=== PATIENT | male | born 1945 | race Caucasian/White ===

== ENCOUNTER 2022-12-04 12:39 | Outpatient (CLI) | payer OTHER, SELFPAY | END 2022-12-04 12:40 | disposition home or self-care (01) | LOC: INJ CL 12:41 | PROVIDERS: PCP Family Medicine; Visit Provider Family Medicine | DX: M17.12 Unilateral primary osteoarthritis, left knee (principal); M25.562 Pain in left knee | CPT/HCPCS: 64454 ==

== ENCOUNTER 2022-12-18 11:57 | Outpatient (CLI) | payer OTHER, SELFPAY | END 2022-12-18 11:58 | disposition home or self-care (01) | LOC: INJ CL 11:57 | PROVIDERS: PCP Family Medicine; Visit Provider Family Medicine | DX: M17.12 Unilateral primary osteoarthritis, left knee (principal); M25.562 Pain in left knee; G89.29 Other chronic pain | CPT/HCPCS: 64624; J2250; J3010 ==

== ENCOUNTER 2023-11-12 14:19 | Outpatient (CLI) | payer OTHER, SELFPAY | END 2023-11-12 14:20 | disposition home or self-care (01) | LOC: INJ CL 14:23 | PROVIDERS: PCP Family Medicine; Visit Provider Family Medicine | DX: M17.12 Unilateral primary osteoarthritis, left knee (principal); M25.562 Pain in left knee | CPT/HCPCS: 64454 ==

== ENCOUNTER 2023-12-03 12:08 | Outpatient (CLI) | payer OTHER, SELFPAY | END 2023-12-03 12:09 | disposition home or self-care (01) | LOC: INJ CL 12:08 | PROVIDERS: PCP Family Medicine; Visit Provider Family Medicine | DX: M17.12 Unilateral primary osteoarthritis, left knee (principal); M25.562 Pain in left knee; G89.29 Other chronic pain | CPT/HCPCS: 64624; J2250; J3010 ==

== ENCOUNTER 2024-04-15 09:46 | Day surgery (SDC) | payer MEDICARE, SELFPAY ==
[2024-04-15] VITALS (22 sets, daily range): BP systolic 114–157; BP diastolic 62–86; PULSE 61–89; RESP 14–16; TEMP 36.1–36.9; O2SAT 94–100; BMI 31.3
--- OUTSIDE RECORDS SUMMARY | 2024-04-15 09:49 | XMS_ITS | Clinical Summary ---
Author Organization [employer] [facility] [employer] [facility] Address [place], [place] [address] Care Team Providers Care Transplant Case Manager Name Role Phone Issac Curry MD Primary Care Provider [phone] Allergies Active Allergy Reactions Criticality Noted Date Comments Tamsulosin Chest Pain 07/08/2012 Lisinopril Cough 10/25/2016 Fenofibrate Nausea Only 07/02/2007 Medications MULTIVITAMIN TAB one tab daily 30 0 07/02/19 08 Active naproxen (ALEVE) 220 mg tablet One tab daily 0 07/09/19 13 Active kqabf-[id number]-[id number]-e pa-lipids 317-88-48-50 mg cap Take by mouth once daily. 1 Cap 0 11/14/19 13 Active CONTOUR NEXT METER USE DIRECTED 0 19 Active lancets 33 gauge miscIndications:Typ e 2 diabetes mellitus without complication, with long-term current use of insulin (HC) Dispense item covered by pt ins. E11.9 IDDM type II - Test 4 times/day. Reason: High A1C 400 Each 3 07/01/19 20 Active blood sugar diagnostic (OneTouch Ultra Test) stripIndications:Ty pe 2 diabetes mellitus with microalbuminuria, with long-term current use of insulin (HC) DISPENSE TEST STRIPS COVERED BY INSURANCE. TEST 4 TIMES DAILY 400 Each 3 05/27/19 24 Active FreeStyle Thierno 3 Sensor for continuous blood glucose monitor (CGM)Indications:Ty pe 2 diabetes mellitus with left eye affected by mild nonproliferative retinopathy without macular edema, with long-term current use of insulin (HC) To be used to read blood sugars, follow tunnel heading supervisor directions. 6 Each 3 09/19/19 24 Active PrintEcoStyle Thierno 3 [place] for continuous blood glucose monitor (CGM)Indications:Ty pe 2 diabetes mellitus with left eye affected by mild nonproliferative retinopathy without macular edema, with long-term current use of insulin (HC) To be used to read blood sugars follow tunnel heading supervisor directions. 1 Each 09/19/19 24 Active pen needle (bd insulin pen needle uf mini) 31 gauge x 3/16 (disposable insulin pen needle)Indications: Diabetes mellitus without complication (HC) USE DIRECTED FOR INJECTION 5 TIMES A DAY 500 Each 3 10/17/19 24 Active insulin glargine, U-100, (Basaglar KwikPen U-100 Insulin) 100 unit/mL (3 mL) penIndications:Type 2 diabetes mellitus with microalbuminuria, with long-term current use of insulin (HC) Inject 40 units subcutaneous once daily. Product desired: BASAGLAR 36 mL 2 01/20/20 24 Active atorvastatin (LIPITOR) 40 mg tabletIndications:H ypercholesterolemia Take 1 Tablet (40 mg) by mouth once daily. For cholesterol 90 Tablet 3 01/22/20 24 Active insulin aspart, U-100, (NovoLOG Flexpen U-100 Insulin) 100 unit/mL (3 mL) penIndications:Type 2 diabetes mellitus with microalbuminuria, with long-term current use of insulin (HC) 20-40 UNITS TOTAL PER DAY BASED ON BLOOD SUGAR AND CARBS EATEN. 39 mL 2 01/22/20 24 Active losartan (COZAAR) 100 mg tabletIndications:P rimary hypertension Take 1 Tablet (100 mg) by mouth once daily. For blood pressure 90 Tablet 3 01/22/20 24 Active metFORMIN (GLUCOPHAGE XR) 500 mg Extended-Release tabletIndications:T ype 2 diabetes mellitus with microalbuminuria, with long-term current use of insulin (HC) Take 2 Tablets (1,000 mg) by mouth two times daily with meals. For diabetes. 360 Tablet 3 01/22/20 24 Active SITagliptin phosphate (JANUVIA) 50 mg tabletIndications:T ype 2 diabetes mellitus with microalbuminuria, with long-term current use of insulin (HC) Take 1 Tablet (50 mg) by mouth once daily. For diabetes. 90 Tablet 2 03/16/19 25 Active amLODIPine (NORVASC) 2.5 mg tabletIndications:P rimary hypertension Take 1 Tablet (2.5 mg) by mouth once daily. For blood pressure. 90 Tablet 2 04/03/19 25 Active amLODIPine (NORVASC) 5 mg tabletIndications:P rimary hypertension Take 1 Tablet (5 mg) by mouth once daily. For blood pressure. 30 Tablet 5 03/09/20 24 025 Disconti nued(*Me dication adjustme nt) Active Problems Problem Noted Date Diagnosed Date Chronic pain of left knee 12/04/2023 Overview (12/04/2023): Nov 2023: Dr. Hutchinson did left knee Coolief procedure. 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 Hutchinson ultrasound guided left hip joint injection. At 2+ weeks 95% Pain relief. September 2023: Dr. Hutchinson ultrasound guided left hip joint injection. AT 2 weeks was 90% pain relief January 2024: Dr. Hutchinson ultrasound guided left hip joint injection with Cortisone and Euflexa. Hypertriglyceridemia 01/24/2020 Overview (11/07/2020): Has allergy to Tricor. Jan 2020: Triglycerides 422. Trig 779, pt declined adding fenofibrate to statin. RBBB (right bundle branch block) 07/25/2018 Overview (07/25/2018): July 2018: holter also showed pvc 11%. Coronary artery disease invo lving mille lacs coronary artery of mille lacs heart without angina pectoris 11/15/2016 Overview (11/15/2016): 2010: [facility] for chest pain with negative Chest CT, Angiogram without limiting lesion, Echocardiogram also; thought to be GERD Related CP in 2010. Apr 2016: palpitations, Stress test negative for ischemia. October 2016: Admission for chest pain to [facility]. Coronary CT Angiogram showed calcium score 75%. Chest pain 10/25/2016 Skin cancer 10/11/2016 Overview (10/11/2016): 10/09/16 right upper back: Basal cell carcinoma, nodular and infiltrative types. ED & C done 10/09/16 Chest pain, non-cardiac 07/08/2014 Overview (10/26/2016): 2010: [facility] for chest pain with negative Chest CT, Angiogram without limiting lesion, Echocardiogram also; thought to be GERD Related CP in 2010. Apr 2016: palpitations, Stress test negative for ischemia. October 2016: Admission for chest pain to [facility]. CT Heart Profile done at [facility]. 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 Elevated liver enzymes 02/14/2013 Overview (02/14/2013): February 2013: ALT mildly elevated. Family hx of colon cancer 12/18/2010 Overview (11/13/2012): Father had Colon Cancer in 60's. GERD (gastroesophageal reflux disease) 1 Overview (04/05/2014): 2010: GERD, [place]. [facility] [place] [facility] and was negative for CAD May 2010. Primary hypertension 06/11/2008 Overview (03/09/2024): June 2013: started lisinopril. May 2016: changed lisinopril to losartan due to cough. Jan 2020: increased Losartan to 75mg. February 2020: increased Losartan 100mg. January 2024: Add amlodipine 2.5mg. February 2024: Increased amlodipine to 5mg. Hypercholesterolemia 04/27/2005 Overview (11/07/2020): September 2013: due to new recs, increased Atorvastatin (Lipitor) to 40 mg. October 2020: Trig 779, pt declined adding fenofibrate to statin. 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 Was on oral meds, stopped around 2006 for metformin, and 2010 for actos and januvia. [facility] and was negative for CAD May 2010. On insulin since approximately 2010. Nov 2012: lantus 50 Units times 2 at same time total 100 Units. 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 March 2014: Humalog Kwik pen not covered. Dec 2015: adding metformin to lantus and novolog. September 2019: [facility] No Diabetic Changes, but had other Eye Disease. October 2020: Continued insulin and added Farxiga. Oct 2021: stopped Farxiga due to urinary symptoms. August 2022: added januvia, continued on metformin and insulin. January 2024: Changed Januvia to Tradjenta for cost reasons only. Mar 2024: Changing back to Januvia 50mg, Tradjenta not seeming to work well. Resolved Problems Problem Noted Date Diagnosed Date Resolved Date Subdural hematoma 06/11/2008 11/03/2020 Overview (11/13/2012): 2008, fall, 2 months later with Subdural and emergency craniotomy. No know residual effects. Hypertension 02/24/2008 06/11/2008 Encounters Date Type Department Care Team Description 04/03/2024 11:10 AM ROLLING MACHINE OPERATOR Office Visit [facility] [address] [facility] [place] [address] Issac Curry MD Preoperative Exam (DOS: 04/15/2024 LEFT Hip Replacement/[facility]/Dr Jeremiah Ariza) 04/03/2024 Orders Only [facility] [address] [facility] [place] [place] [address] Issac Curry MD 1 scan: (1-Ord) NFLD-EKG-04/03/24 04/03/2024 Travel 03/16/2024 Telephone [facility] [address] [place] [address] Issac Curry MD Medication Management 03/06/2024 Telephone [facility] [address] [place] [address] Issac Curry MD Medication Management (SITagliptin phosphate (JANUVIA) 50 mg tablet) 03/06/[address] [address] Issac Curry MD call back (blood pressure reading) 03/05/[address] [address] Issac Curry MD Refill Request (JANUVIA) 02/27/[address] [address] Issac Curry MD Blood Pressure 02/05/2024 7:45 AM ROLLING MACHINE OPERATOR Procedure Only [address] [address] Corey Hutchinson MD Procedure (Left hip intra-articular betame... 02/05/2024 Travel 02/03/[address] [address] Issac Curry MD Refill Request (Januvia 50mg tablet) 01/20/2024 12:35 PM ROLLING MACHINE OPERATOR Office Visit [address] [address] Issac Curry MD Diabetes (Last Diabetic Check: 09/19/2023/Last Diabetic Eye Exam: 03/14/2021/Last Diabetic Education: 10/02/2023) 01/20/2024 Orders Only [address] [address] Issac Curry MD <No scans attached> 01/20/2024 Travel from Last 3 Months Immunizations Name Administration Dates Next Due COVID-19 VACCINE SPIKEVAX (M ODERNA 50MCG/0.5ML) 12YO+ PFS 01/29/2023 COVID-19 vaccine (KOALA.CHBio NTech 30mcg/0.3mL) 12YO+ BIVALENT PF, MDV 08/23/2022,12/25/2021 COVID-19 vaccine (Pfizer-Bio NTech 30mcg/0.3mL) 12YO+ CARLTON-SUCROSE PF, MDV 06/22/2021 COVID-19 vaccine (PfizerWhistlestopBio NTech 30mcg/0.3mL) PF, MDV 12/16/2020,05/31/2020,05/10/2020 Influenza, High-dose Inactivated 11/27/2023,12/09 Influenza, High-dose Quadriv alent Inactivated 01/14/2023 Influenza, IIV3 (Age >=3 years) 12/18/2010,02/03 Influenza, Inactivated AIIV4 (Age 65+ Years) Preserv Free 01/16/2022,02/06/2021,01/21/2020 Influenza, Inactivated IIV3 (Age 65+ Years) Preserv Free 11/24/2018,11/15/2016 Pneumococcal Poly,23-Valent (Pneumovax) 04/03/19 17,08/04/2009 Pneumococcal conj 13-Valent (Prevnar 13) 015 RSV, Recombinant ADJ Reconst ituted (Arexvy 120MCG/0.5mL) 02/03/2024 Tdap 08/04/2009 Zoster (Shingrix-RZV, recombinant) 03/08/2021, Zoster (Zostavax-ZVL, live) 02/25/2007 Family History Medical History Relation Name Comments Cancer-colon Father D 83 also had s harrington in brain Diabetes Mother D 83 old age Good Health Sister 1 born 1944 retinal detachm ent Aplastic anemia Sister 2 born 1939 Good Health Sister 2 born 1939 Relation Name Status Comments Father Mother Paternal Grandfather Sister 1 born 194 Sister 2 born 1939 Social History Tobacco Use Types Packs/Day Years Used Date Smoking Tobacco: Former Cigarettes 1 5.8 1 975 - 12/19/1979 Smokeless Tobacco: Never Tobacco Cessation:Counseling Given: Yes Comments:Hasn't smoked for a long time. Alcohol Use Standard Drinks/Week Comments Yes 0 (1 standard drink = 0.6 oz pur e alcohol) one drink weekly PHQ-2 Answer Date Recorded PHQ-2 TOTAL SCORE 0 09/19/2023 Exercise Vital Sign Answer Date Recorde d On average, how many days pe r week do you engage in moderate to strenuous exercise (like a brisk walk)? 5 days 02/29/2020 On average, how many minutes do you engage in exercise at this level? 30 min 02/29/2020 Social Connections Answer Date Recorded Do you often feel lonely or isolated from those around you? 0 01/20/2024 Financial Resource Strain Answer Date R ecorded Difficulty of Paying Living Expenses 3 01/20/2024 Difficulty of Paying Living Expenses Not on file 01/20/2024 Food Insecurity Answer Date Recorded Do you worry your food will run out before you are able to buy more? 1 01/20/2024 Transportation Needs Answer Date Record ed Does lack of transportation keep you from medica l appointments? 1 01/20/2024 Does lack of transportation keep you from work, meetings or getting things that you need? 1 01/20/2024 Housing Stability Answer Date Recorded What is your housing situation today? 1 01/20/2024 Utilities Answer Date Recorded Do you have trouble paying f or utilities (for example, heat, electricity, water, phone)? 1 01/20/2024 Sex and Gender Information Value Date Recorded Sex Assigned at Not on file Legal Sex Male 5:39 AM ROLLING MACHINE OPERATOR Gender Identity Not on file Sexual Orientation Not on file Occupation Industry Job Start Date Job End Date reitred - pharmacy student Not on file Not on file Not on file Obstetrics History Last Filed Vital Signs Vital Sign Reading Time Taken Comments Blood Pressure 135/73 04/03/2024 11:22 AM ROLLING MACHINE OPERATOR re check BP Pulse 64 04/03/2024 11:12 AM ROLLING MACHINE OPERATOR Temperature 36.7 C (98 F) 02/05/2024 7:43 AM ROLLING MACHINE OPERATOR Respiratory Rate 16 12/14/2022 9:50 AM CDT Oxygen Saturation 97% 04/03/2024 11:12 AM ROLLING MACHINE OPERATOR Inhaled Oxygen Concentration - - Weight 93.4 kg (206 lb) 04/03/2024 11:12 AM ROLLING MACHINE OPERATOR Height 172.7 cm (5' 8) 04/03/2024 11:12 AM ROLLING MACHINE OPERATOR Body Mass Index 31.32 04/03/2024 11:12 AM ROLLING MACHINE OPERATOR Plan of Treatment Upcoming Encounters Date Type Department Care Team (Late st Contact Info) Description 05/18/2024 1:00 PM CDT Office Visit [facility] [address] [place] [address] Issac Curry MD [address] [place] [address] Health Maintenance Due Date Last Done Comments Tetanus booster 08/05/2019 08/04/2009, 07/10 (Postponed) Medicare Wellness for age 65+ 2023 01/16/2022, 01/21/2020 Depression screening for age 12+ 09/18/2024 09/19/2023, 01/16/2022, 05/22/2021, Additional history exists BMI (ht and wt on same day) for age 18+ 04/03/2025 04/03/2024, 05/30/2023, 01/29/2023, Additional history exists Tdap Completed 08/04/2009 Pneumococcal series for age 50+ Completed 04/03/2016, 02/01/2015, 08/04/2009 Hepatitis C screening for ag e 18-79 Completed 03/27/2019 Zoster (shingles) series for age 50+ Completed 03/08/2021, 11/04/2020, 02/25/2007 COVID-19 vaccine series Completed 11/27/19 24, 01/29/2023, 08/23/2022, Additional history exists Influenza for age 65+ Completed 11/27/2023 , 01/14/2023, 01/16/2022, Additional history exists RSV vaccine for adults or Completed 02/03/2024 Medical Devices Implanted Type Area Ash Handler Device Identifier Shelf Expiration Date Model / Serial / Lot Plate Sm Square [id number] - [id number] Implanted:Qty: 2 on 06/11/2008 at [facility] Neuro Implants Left: Cranium [employer]FAM[employer] DANEK [id number] / / Straight Plate Implanted:Qty: 1 on 06/11/2008 at [facility] Left: Cranium [id number] / / Description:STRAIGHT PLATE 1.6mmx4.0mm Cruciate Self Drilling Implanted:Qty: 10 on 06/11/2008 at [facility] Explanted:at [facility] (Quantity not on file) Left: Cranium [id number] / / Description:1.6MMX4.0MM CRUC IATE SELF DRILLING Procedures Procedure Name Priority Date/Time Associated Diagnosis Comments EKG 12 LEAD Routine 04/03/2024 4:39 PM ROLLING MACHINE OPERATOR Preoperative examination Coronary artery disease involving mille lacs coronary artery of mil[place] heart without angina pectoris [place] READING EKG - NO CHARGE, COMP ONLY Routine 04/03/2024 4:38 PM ROLLING MACHINE OPERATOR Preoperative examination Coronary artery disease involving mil[place] coronary artery of [place] heart without angina pectoris HEMOGLOBIN Routine 04/03/2024 12:21 PM ROLLING MACHINE OPERATOR Preoperative examination BASIC METABOLIC PANEL Routine 04/03/2024 12:21 PM ROLLING MACHINE OPERATOR 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, with long-term current use of insulin (HC) Primary hypertension BEDSIDE US STUDY ARCHIVE Routine 02/05/2024 9:38 AM ROLLING MACHINE OPERATOR Primary osteoarthritis of left hip HEMOGLOBIN A1C MONITORING (POCT) Routine 01/20/2024 12:19 PM ROLLING MACHINE OPERATOR Type 2 diabetes mellitus with microalbuminuria, with long-term current use of insulin (HC) ANTI HCV Routine 03/27/2019 10:50 AM ROLLING MACHINE OPERATOR Need for hepatitis C screening test from Last 3 Months or Most Recently Relevant to Health Maintenance Results * EKG 12 LEAD (04/03/2024 4:39 PM ROLLING MACHINE OPERATOR) Issac Curry MD EKG ORD Final Res ult * [place] READING EKG - NO CHARGE, COMP ONLY (04/03/2024 4:38 PM ROLLING MACHINE OPERATOR) Issac Curry MD PB - PROVIDER READINGS Fi nal Result * HEMOGLOBIN (04/03/2024 12:21 PM ROLLING MACHINE OPERATOR) HEMOGLOBIN 14.0 13.2 - 17.1 g/dL [facility] Blood BLOOD SPECIMEN / Unknown 04/03/2024 12:21 PM ROLLING MACHINE OPERATOR 04/03/2024 12:21 PM ROLLING MACHINE OPERATOR Issac Curry MD HEMATOLOGY Final Res ult [facility] [address] [place] [address], [facility] [address] [place] [address] * (ABNORMAL) BASIC METABOLIC PANEL (04/03/2024 12:21 PM ROLLING MACHINE OPERATOR) Pathologist [facility] GLUCOSE 138(H) 65 - 99 mg/dL [facility] Comment: Fasting reference interval For someone without known diabetes, a glucose value >125 mg/dL indicates that they may have diabetes and this should be confirmed with a follow-up test. UREA NITROGEN (BUN) 21 7 - 25 mg/dL [facility] CREATININE 0.88 0.70 - 1.28 mg/dL [facility] EGFR 88 > OR = 60 mL/min/1. 73m2 [facility] BUN/CREATININE RATIO SEE NOTE: 6 - 22 (calc) [facility] Comment: Not Reported: BUN and Creatinine are within reference range. SODIUM 136 135 - 146 mmol/L [facility] POTASSIUM 4.9 3.5 - 5.3 mmol/L [facility] CHLORIDE 102 98 - 110 mmol/L [facility] CARBON DIOXIDE 26 20 - 32 mmol/L [facility] ELECTROLYTE BALANCE 8 7 - 17 mmol/L (calc) [facility] CALCIUM 9.8 8.6 - 10.3 mg/dL [facility] Blood BLOOD SPECIMEN / Unknown 04/03/2024 12:21 PM ROLLING MACHINE OPERATOR 04/03/2024 12:21 PM ROLLING MACHINE OPERATOR us Issac Curry MD CHEMISTRY Final Res ult Performing Organization Address [facility] Co de Phone Number [facility] [address] [place] [address], [place] [phone] [facility] [address] [place] [address] * BEDSIDE US STUDY ARCHIVE (02/05/2024 9:38 AM ROLLING MACHINE OPERATOR) Narrative Nicole Davies - 02/05/2024 9:38 AM ROLLING MACHINE OPERATOR The patient was seen for ultrasound guided injection by Dr. Corey Hutchinson. Ultrasound was not used for diagnostic purposes, but to guide the needle placement and document the position of the injection. See patient's EPIC encounter for the detail of the procedure; see [facility] for saved images of the injection. Corey Hutchinson MD PROCEDURE ORD Final Resu lt * (ABNORMAL) HEMOGLOBIN A1C MONITORING (POCT) (01/20/2024 12:19 PM ROLLING MACHINE OPERATOR) Pathologist [facility] POC HEMOGLOBIN A1C 6.9(H) <6.0 % OF TOTAL HGB [facility] Comment: Any point of care results exhibiting inconsistency with the patient's clinical status should be repeated using a different testing method. Blood BLOOD SPECIMEN / Unknown 01/20/2024 12:19 PM ROLLING MACHINE OPERATOR 01/20/2024 12:19 PM ROLLING MACHINE OPERATOR Issac Curry MD CHEMISTRY Final Res ult Performing Organization Address City/[facility]/ZIP Co de Phone Number [facility] [address] [place] [address], [place] [phone] [facility] [address] [place] [address] * ANTI HCV (03/27/2019 10:50 AM ROLLING MACHINE OPERATOR) Pathologist [facility] HEPATITIS C ANTIBODY Non-React bryce Non-React bryce 03/27/2019 4:33 PM ROLLING MACHINE OPERATOR [facility] Comment:Antibodies to HCV no t detected; does not exclude the possibility of exposure to HCV. Blood BLOOD SPECIMEN / Unknown Venipuncture / Unknown 03/27/2019 10:50 AM ROLLING MACHINE OPERATOR 03/27/2019 10:50 AM ROLLING MACHINE OPERATOR us Issac Curry MD SEND OUTS Final Res ult [facility] [address] [place] [address], [place] from Last 3 Months or Most Recently Relevant to Health Maintenance Insurance #[id number] [place] [address] MEDICARE PART A HB ONLY [facility] AETNA #[id number] [place] [address] [employer]UE [employer] BLUE MR PB ONLY [facility] AETNA MR Advance Directives * Full Code (Latest Code Status on File) Date Activated Date Inactivated Comments 07/11/2021 9:32 AM 07/11/2021 4:15 PM Question Answer Comments Code Status Discussion: Unable to Assess Preferences, Provider to review later * Full Code Date Activated Date Inactivated Comments 10/26/2016 12:06 AM 10/26/2016 3:42 PM Question Answer Comments Code Status Discussion: Not Discussed * Full Code Date Activated Date Inactivated Comments 06/11/2008 10:54 PM 06/15/2008 1:16 PM * Full Code Date Activated Date Inactivated Comments 06/11/2008 5:28 PM 06/11/2008 10:54 PM Care Teams Transplant Case Manager Relationship Specialty Start Date End Date Issac [place] [address] PCP - General Family Practice 09/19/23
[2024-04-15] MEDS: SODIUM CHLORIDE 0.9 % (FLUSH) 10 ML SYRINGE IVF (11:20)
[2024-04-15] MEDS: OXYCODONE (CR) 10 MG TAB.ER.12H PO (11:25)
[2024-04-15] MEDS: ACETAMINOPHEN 500 MG TABLET 1000 MG PO ×3 (11:26→23:32)
--- NOTE | 2024-04-15 11:45 | CRLHL7_ITS ---
For Patients: As a result of the Cures Act, medical imaging exams and procedure reports are released immediately into your electronic medical record. You may view this report before your referring provider. If you have questions, please contact your health care provider. Indication: Hip replacement surgery Technique: AP hip fluoroscopic image. Fluoroscopy time 36.5 seconds. Findings/Impression: Hardware from a left total hip arthroplasty is in satisfactory position. Dictated by Jeffrey Vega MD @ 04/15/2024 3:32:30 PM (Electronically Signed)
--- NOTE | 2024-04-15 12:10 | W.PM.H&PU ---
History & Physical Update History & Physical Update H&P Reviewed and patient assessed: No changes noted
[2024-04-15] MEDS: 0.9 % SODIUM CHLORIDE 500 ML 500 ML 100 ML IV (12:30)
[2024-04-15] MEDS: fentaNYL 100 MCG/2 ML inj IVP (12:31)
[2024-04-15] MEDS: MIDAZOLAM HCL 1 MG/ML inj IVP (12:31)
--- NOTE | 2024-04-15 12:34 | SUR.PREOP ---
TIME?OUT:?1230 PT/RN/MDA?VERIFICATION?OF?SURGICAL?SITE,?PROCEDURE,?AND?CONSENT OBTAINED?PRIOR?TO?INVASIVE?PROCEDURE.all in agreement
--- NOTE | 2024-04-15 12:42 | SUR.PREOP ---
pt checked his BG via his phone monitor. 95. MDA aware. No action needed.
[2024-04-15] MEDS: LACTATED RINGERS 1000 ML 1,000 ML 100 ML IV (13:04)
[2024-04-15] MEDS: CEFAZOLIN 2 GM in 0.9 % SODIUM CHLORIDE Mini-bag 100 ML IVPB ×2 (13:28→19:28)
[2024-04-15] MEDS: TRANEXAMIC ACID 100 MG/ML INJ 1000 MG IV (13:40)
--- NOTE | 2024-04-15 13:44 | P.NB_ITS ---
Nerve Block Nerve Block Time Seen by Provider: 12:35 Date Seen: 04/15/24 Type of block requested by surgeon for post-operative analgesia: GERI/LFCN Side: left Time out performed: Yes Verification of patient name: Yes Verification of date of : Yes Site marking: site marked Name of person performing procedure: Vazquez Continuous monitoring Was continuous monitoring of O2 sat, B/P, nuclear monitoring technician, recorded every 15 minutes?: Yes Procedure Checklist: sterile prep, needles and gloves Ultrasound guided. Images saved: Yes Medications given in 5ml increments after negative aspiration: Ropivicaine %: 0.5 mL: 30 Needle gauge: 20 Precedex (mcg): 25 Patient tolerated procedure well: Yes Additional comments: Needle noted below psoas tendon needle noted adjacent to LFCN Block Charges Block Charge (with Pro Fee): Other Periph Nerve Block Use of Ultrasound Machine for Block: Yes- US Guidance/pain block
--- NOTE | 2024-04-15 13:44 | P.ANES_ITS ---
Anesthesia Charges Start Date/Time Anesthesia Start Date: 04/15/24 Anesthesia Start Time: 13:14 Stop Date/Time Anesthesia Stop Date: 04/15/24 Anesthesia Stop Time: 15:40 Summary Extremes of Age - Over 70 or under 1: MDA Coding CPT Codes CPT Codes: ANESTH HIP ARTHROPLASTY - 53362 ([id number]) P3 - PATIENT W/SEVERE SYS DISEASE, QK - PSYCHOLOGIST SOCIAL 2-4 CNCRNT ANES PROC, QX - CUSTOMER CARE TEAM COACH SVC W/ MD MED DIRECTION Additional Codes: Summary - Extremes of Age - Over 70 or under 1: MDA ([id number])
--- NOTE | 2024-04-15 13:44 | W.ANESCHARGE ---
Anesthesia Charges Start Date/Time Anesthesia Start Date: 04/15/24 Anesthesia Start Time: 13:14 Stop Date/Time Anesthesia Stop Date: 04/15/24 Anesthesia Stop Time: 15:40 Summary Extremes of Age - Over 70 or under 1: MDA Coding CPT Codes CPT Codes: ANESTH HIP ARTHROPLASTY - 17511 ([id number]) P3 - PATIENT W/SEVERE SYS DISEASE, QK - HAZMAT TRUCK DRIVER 2-4 CNCRNT ANES PROC, QX - ECONOMICS ANALYST SVC W/ MD MED DIRECTION Additional Codes: Summary - Extremes of Age - Over 70 or under 1: MDA ([id number])
--- NOTE | 2024-04-15 14:57 | PM.ORPRC ---
Procedure Note Date of procedure: 04/15/24 Procedure: PREOPERATIVE DIAGNOSIS: 1. Left hip osteoarthritis, severe, primary POSTOPERATIVE DIAGNOSIS: 1. Left hip osteoarthritis, severe, primary PROCEDURE: 1. Left total hip arthroplasty-anterior approach 2. 13607 - intraoperative fluoroscopy up to 1 hour. SURGEON: Jeremiah Ariza MD. PNEUMATIC HOIST OPERATOR: Garland Blanco PA-C; May Zendejas PA-C - Of note, a skilled assistant hvac mechanic was critical for this case to aid in patient positioning, tissue retraction, limb manipulation/positioning, dislocation/relocation, patient safety, and closure. ANESTHESIA: General endotracheal anesthetic EBL: 300 mL IMPLANTS: DePuy J&J uncemented total hip [place] cup size 54, hole eliminator, +4 neutral liner Actis stem, high offset, size 6 +1.5 mm ceramic 36 mm head. COMPLICATIONS: None evident INDICATIONS: The patient is a pleasant 79-year-old male who has experienced severe left hip pain and difficulty bearing weight. Workup included x-rays which revealed severe osteoarthrosis in the hip. Given the deformity, the dysfunction, and the pain, as well as the failure of nonoperative management, recommendation was made for surgery. FINDINGS: Full-thickness chondral loss diffusely throughout the femoral head and acetabulum. Deformed/flattened femoral head. Abundant synovitis diffusely throughout the hip joint. DESCRIPTION OF PROCEDURE: Following a thorough discussion of risks, benefits, and alternatives consent was obtained and the left hip was marked. The patient was brought to the operating room and placed supine on the operating table. Induction of anesthesia was undertaken. 2 g IV Ancef and 1 g tranexamic acid was administered within 1 hr of incision preoperatively. Proper time-out was performed identifying proper patient, site, procedure. The operative extremity was prepped and draped in the appropriate sterile fashion using ChloraPrep after the patient was positioned on the Mcgraw table with head in neutral alignment and all bony prominences well padded. C-arm fluoroscopic imaging was utilized to confirm proper pelvis rotation and position, and to get true AP films of both the contralateral left, and the affected left hip. This is for comparison. A longitudinal incision was made starting approximately 1 cm distal to the ASIS, and 3-4 cm lateral. The incision was extended distally aiming toward the lateral border the patella. Sharp incision through skin and bovie cautery through the subcutaneous tissue allowed identification of the TFL fascia. This was sharply divided, and the fascia bluntly released from the muscle fibers as we dissected medial. Upon coming to the medial border, we were able to retract the TFL laterally, and penetrated the deeper fascia and identify the crossing circumflex vessels. These were ligated/cauterized. The rectus was elevated from the capsule, and retractors placed laterally and medially along the femoral neck to help with visualization of the capsule. We then performed an inverted T capsulotomy. The capsule was tagged for later repair. Retractors were placed inside the capsule. The femoral neck was visualized after releasing medially down to the lesser trochanter, along the saddle laterally, and up onto the acetabulum. The femoral neck cut was made in line with our preoperative templating. The head was removed in a single piece, and sized. We turned our attention to acetabular preparation. Initially, the labrum was resected from around the perimeter, the pulvinar was excised, allowing us to visualize the false wall. We started the reaming with a 43 mm reamer. This was medialized down to the true wall. We then enlarged our reamers sequentially up to one size less than the selected cup size. We trialed at the same size and found it to have an excellent fit. The selected cup was then opened, inserted, and impacted in line with the goal of 40-45? of abduction, and 20-25? of anteversion. This was confirmed on C-arm fluoroscopic imaging to be in the appropriate/goal position. Once the cup was placed we placed a hole eliminator and a liner consistent with preop planning. Attention was turned to the femoral preparation. The limb was extended, externally rotated, and adducted. The posteromedial capsule was released, as retractors were placed allowing excellent access to the proximal femur. Initially a card boxer was followed by canal finder followed by various broaches. We broached sequentially up to size noted above, found it to have excellent rotational control, and trialing various heads and necks, revealed that appropriate neck offset, and the above noted head size provided the greatest stability, and presybeterian of length, and offset. C-arm fluoroscopic imaging confirmed position of the stem, as well as leg lengths, which were compared with the pre procedure all fluoroscopic images. Trial implants were removed, the real femoral stem inserted, as was the ceramic head. After reducing, the leg was placed through range of motion and stability was confirmed anterior, posterior, and lateral. A 3 min Betadine soak was then performed, and thorough irrigation with normal saline followed. Closure of the capsule was performed with #1 PDS. Bleeding was confirmed to be controlled at this stage, and the TFL fascia was closed with #0 strata fix. Subcutaneous, and subcuticular closure was performed with 2-0 Vicryl and 4-0 Monocryl, respectively. Dressings were applied, and the patient was awoken from anesthesia and transferred the PACU in stable condition. A skilled assistant hvac mechanic was critical for this case to aid in patient positioning, tissue retraction, proximal femur exposure, limb manipulation/positioning, dislocation/relocation, patient safety, and closure. PLAN: 1. Weight bear as tolerated operative extremity. 2. 23 hr perioperative antibiotics. 3. Ice. 4. PT/OT consults for ambulation assistance/mobility education. 5. Social work consult for discharge planning. 6. DVT prophylaxis with at SCDs and Xarelto x5 days followed by aspirin for a total of 1 month..
--- NOTE | 2024-04-15 16:45 | P.IMCN_ITS ---
Date of Consult Patient: [place] Patient Consult date: 04/15/24 Requesting Physician: Orthopedics Primary Care Provider: Issac Curry MD Consult Narrative Reason for consult: Medical management Narrative: Brett Quezada is a 79 year old male past medical history significant for type 2 diabetes mellitus, insulin dependent, hypertension, hyperlipidemia, CAD, GERD, history of subdural hematoma, RBBB is POD#0 s/p left total hip arthroplasty, Dr. Ariza. There have been no perioperative complications or nursing concerns reported. Estimated total blood loss documented as 300 ml. Updated and reviewed the active medical problems, past medical history, past surgical history, social history, allergies and medications in our electronic EMR. Postoperatively, patient is seen with and daughter at bedside. Reports doing well. Pain well managed at this time. Reports his leg is just waking up. Denies headache or dizziness. Denies chest pain or shortness of breath. Tolerating orals without nausea vomiting. Review of Systems Narrative: REVIEW OF SYSTEMS: Complete review of systems performed and negative unless otherwise stated in HPI or below. PFSH PFSH Medical History GERD (gastroesophageal reflux disease) ?K21.9 - Gastro-esophageal reflux disease without esophagitis (ICD-10) Hypercholesteremia ?E78.00 - Pure hypercholesterolemia, unspecified (ICD-10) Right bundle branch block ?I45.10 - Unspecified right bundle-branch block (ICD-10) Coronary artery disease ?I25.10 - Atherosclerotic heart disease of [place] coronary artery without angina pectoris (ICD-10) Hypertension ?I10 - Essential (primary) hypertension (ICD-10) Diabetes ?E11.9 - Type 2 diabetes mellitus without complications (ICD-10) Surgical History Hx of craniotomy ?Z98.890 - Other specified postprocedural states (ICD-10) Hernia ?K46.9 - Unspecified abdominal hernia without obstruction or gangrene (ICD- 10) Family History Mother Diabetes Uncle Diabetes Father Colon cancer Social History What is your current living situation?: I presently have a place to live Problems where you live: no known problems In the past 12 months, utilities in danger of being shut off: no In past 12 months, lack of transportation kept you from medical appts, meetings, work, or getting things needed for daily living: no In the past 12 mos, have been you worried that your food would run out before you had money to buy more?: never true In the past 12 mos, the food you bought just didn't last and you didn't have money to buy more?: never true Smoking Status: Never smoker How often do you have a drink containing alcohol: monthly or less How many standard drinks containing alcohol do you have on a typical day: 1 or 2 AUDIT-C Alcohol total score: 1 Non-prescribed substance use: denies use Caffeine: Yes How often does anyone, including family, friends and others, physically hurt you : never How often does anyone, including family, friends and others, insult or talk down to you: never How often does anyone, including family, friends and others, threaten you with h arm: never How often does anyone, including family, friends and others, scream or curse at you: never Meds Home Medications and Allergies Home Medications ?Medication ?Instructions ?Recorded ?Confirmed ?Type atorvastatin 40 mg tablet 40 mg PO DAILY 10/04/22 04/15/24 History insulin aspart U-100 100 unit/mL 20 - 40 unit subcut TIDWM 10/04/22 04/15/24 History (3 mL) subcutaneous pen (Novolog FlexPen U-100 Insulin aspart) insulin glargine 100 unit/mL (3 30 - 60 unit subcut BID 10/04/22 04/15/24 History mL) subcutaneous pen (Basaglar KwikPen U-100 Insulin) losartan 100 mg tablet 100 mg PO DAILY 10/04/22 04/15/24 History metformin 500 mg tablet,extended 1,000 mg PO BIDWM 10/04/22 04/15/24 History release 24 hr sitagliptin phosphate 50 mg tablet 50 mg PO DAILY 10/04/22 04/15/24 History (Januvia) krill 1 cap PO DAILY 04/14/24 04/15/24 History utj-hc-[id number]-jdm-izedkyhzewzwn 300 mg-90 mg-24 mg-50 mg capsule (krill oil) multivitamin 1 tab PO DAILY 04/14/24 04/15/24 History amlodipine 2.5 mg tablet 2.5 mg PO DAILY blood pressure 04/15/24 04/15/24 History Allergies Allergy/AdvReac Type Severity Reaction Status Date / Time alendronate sodium (From Allergy Chest Pain Verified 04/14/24 06:16 Fosamax) fenofibrate (From Tricor) Allergy Nausea Verified 04/14/24 06:16 lisinopril Allergy Cough Verified 04/14/24 06:16 Exam Narrative: Exam Narrative: PHYSICAL EXAM General: Pleasant, conversant, NAD HEENT: Normocephalic, atraumatic, sclera white, EOMI, oral mucosa moist Cardiovascular: RRR, S1S2. No pitting edema Pulmonary: CTA bilaterally without rhonchi, rales, expiratory wheezes. No dyspnea Neurological: Alert, answering questions appropriately, cranial nerves intact, no focal findings Extremities: No gross joint deformity or swelling. Postoperative dressing in place, dry. Neurovascularly intact Skin: Warm, dry. Const: Vital Signs, click to edit/add: Vital Signs - 24 hr 04/15/24 10:56 04/15/24 12:31 04/15/24 12:35 Temperature 98.5 F Pulse Rate 66 63 61 Respiratory Rate 16 14 14 Blood Pressure 155/83 H 139/69 117/76 Pulse Oximetry 96 96 95 Oxygen Delivery Me thod Room Air Nasal Cannula Nasal Cannula Oxygen Flow Rate 2 2 04/15/24 15:40 04/15/24 15:45 04/15/24 15:50 Temperature 98.3 F Pulse Rate 70 68 67 Respiratory Rate 14 14 14 Blood Pressure 114/69 114/64 116/70 Pulse Oximetry 95 94 94 Oxygen Delivery Me thod Room Air Room Air Room Air Oxygen Flow Rate 04/15/24 15:55 04/15/24 16:00 04/15/24 16:05 Temperature Pulse Rate 64 65 63 Respiratory Rate 14 14 14 Blood Pressure 120/66 123/66 120/65 Pulse Oximetry 97 100 95 Oxygen Delivery Me thod Room Air Room Air Room Air Oxygen Flow Rate 04/15/24 16:10 Temperature 97.6 F Pulse Rate 67 Respiratory Rate 14 Blood Pressure 116/70 Pulse Oximetry 100 Oxygen Delivery Me thod Room Air Oxygen Flow Rate Assessment and Plan Assessment and plan (1) Osteoarthritis of left hip: Problem comment: -POD#0 s/p L KAYLIN, Dr. Ariza -perioperative management including pain management and anticoagulation per Orthopedic surgery -encourage postoperative pulmonary hygiene -PT OT consults -plan to discharge home with tomorrow Status: Acute (2) Hypertension: Problem comment: -losartan, amlodipine, resume tomorrow Status: Acute (3) Diabetes: Problem comment: -most recent A1c 6.9 -usual home dose glargine 60 units q.a.m. and 30 units q.p.m., give 20 units tonight and 40 units in a.m., resuming home dosing upon discharge -glucose checks ACHS, insulin sliding scale, resume aspart at discharge -okay to resume metformin and Januvia at discharge Status: Acute Total Time Spent Total Time Spent: Total time spent caring for the patient today was 60 minutes. This includes time spent for the visit reviewing the chart, time spent during the visit, time spent after the visit and documentation and planning in coordination of care.
[2024-04-15] MEDS: OXYCODONE 5 MG TABLET PO ×3 (19:27→22:34)
[2024-04-15] MEDS: SENNOSIDES 1 TAB TABLET 2 TAB PO (20:44)
[2024-04-15] MEDS: ATORVASTATIN CALCIUM 40 MG TABLET PO (20:44)
[2024-04-15] MEDS: INSULIN GLARGINE,HUM.REC.ANLOG 100 UNIT/ML INSULN.PEN 20 UNIT SUBCUT (20:45)
[2024-04-15] MEDS: INSULIN ASPART 100 UNIT/ML SUBCUT (20:45)
--- NOTE | 2024-04-15 23:25 | PC.NURSE ---
End of Shift: Patient pleasant and cooperative. Afebrile. Dressing to left hip C/D/I. CMS intact. Rating pain up to 4-5/10 and PRN Oxycodone given x2. Up to bathroom with 1 assist, walker and gait belt. Unable to void. Bladder scanned for 718 mL and straight cathed for 800 mL. Tolerating regular diet with no nausea.
[2024-04-16] MEDS: OXYCODONE 5 MG TABLET PO ×3 (04:10→11:13)
[2024-04-16] MEDS: CEFAZOLIN 2 GM in 0.9 % SODIUM CHLORIDE Mini-bag 100 ML IVPB (04:11)
[2024-04-16 04:17] VITALS: BP 133/75; PULSE 83; RESP 16; TEMP 36.4; O2SAT 99
[2024-04-16] MEDS: ACETAMINOPHEN 500 MG TABLET 1000 MG PO (06:26)
--- NOTE | 2024-04-16 06:57 | PC.NURSE ---
End of shift summary: Assumed care of pt at 2300. He?s been A&O, afebrile and VSS. Ax1 with gait belt & 2ww for transfers. Left anterior hip dressing is C/D/I. Active ice on/off throughout the night. Plexi pulses in place. Pt denies nausea or dizziness. Reports left hip pain /, PRN oxycodone given throughout the night; last given @ 0410. PIV in right hand SL. Plan to discharge home with today, 04/16. ?
[2024-04-16 07:00] VITALS: BP 130/69; PULSE 81; RESP 16; TEMP 36.9; O2SAT 98
[2024-04-16 07:02] LABS: White Blood Count* 9.87 K/uL (4.50-11.00)
[2024-04-16 07:03] LABS: Basophils Absolute Auto 0.01 K/uL (0.00-0.30); Basophils Percent Auto 0.1 % (0.0-3.0); Eosinophils Absolute Auto 0.01 K/uL (0.00-0.50); Eosinophils Percent Auto 0.1 % (0.0-7.0); Hematocrit 36.7 % (37.0-53.0); Hemoglobin* 12.4 gm/dL (13.5-17.5); Immature Granulocytes Abs Auto 0.05 K/uL (0.00-0.30); Immature Granulocytes Pct Auto 0.5 %; Lymphocytes Percent Auto 15.5 % (20-44); Mean Corpuscular HGB Conc 34 gm/dL (32-36); Mean Corpuscular Hemoglobin 30 pg (26-34); Mean Corpuscular Volume 90 fL (80-100); Monocytes Percent Auto 8.9 % (0.0-11.0); Neutrophils Percent Auto 74.9 % (42.0-72.0); Platelet Count* 204 K/uL (140-440); RDW Coefficient of Variation % 12.8 % (11.5-15.5)
[2024-04-16 07:08] LABS: Slide Review Reflex No
[2024-04-16 07:18] LABS: Sodium* 135 mmol/L (135-149)
[2024-04-16 07:19] LABS: Potassium* 4.3 mmol/L (3.6-5.1)
[2024-04-16 07:21] LABS: Creatinine* 0.7 mg/dL (0.5-1.5); Estimated Glomerular Filt Rate 94 ml/min
[2024-04-16 07:22] LABS: Blood Urea Nitrogen* 20 mg/dL (7-30)
[2024-04-16] MEDS: INSULIN ASPART 100 UNIT/ML SUBCUT (07:47)
[2024-04-16 09:45] VITALS: BP 139/71
[2024-04-16] MEDS: SENNOSIDES 1 TAB TABLET 2 TAB PO (09:51)
[2024-04-16] MEDS: INSULIN GLARGINE,HUM.REC.ANLOG 100 UNIT/ML INSULN.PEN 40 UNIT SUBCUT (09:51)
[2024-04-16] MEDS: AMLODIPINE 5 MG TABLET 2.5 MG PO (09:52)
[2024-04-16] MEDS: ATORVASTATIN CALCIUM 40 MG TABLET PO (09:53)
[2024-04-16] MEDS: LOSARTAN POTASSIUM 50 MG TABLET 100 MG PO (09:53)
[2024-04-16] MEDS: RIVAROXABAN 10 MG TABLET PO (09:53)
--- NOTE | 2024-04-16 10:09 | PM.ORPN ---
Subjective Subjective Date Seen: 04/16/24 Principal diagnosis: Status postop day 1, left total hip arthroplasty - anterior approach Interval history: Visit with patient while performing physical therapy. Patient reports doing well. No acute events over night. Pain managed with scheduled and PRN medications, ice. DVT prophylaxis: Rivaroxaban, SCDs, walking. Denies fevers, chills, aches, N/V, CP, SOB/[place], or lightheadedness. Reports some numbness along the lateral left thigh. PT feels he did very well with stairs. Ortho Exam Narrative Exam Narrative: -Patient appears comfortable working on heel slides, PT exam table. No apparent acute distress. present. -Alert and oriented times 3 -Operative hip mildly swollen; soft tissues supple; no obvious erythema. Ecchymosis minimal. Warmth appropriate -Surgical dressing clean, dry, intact; no obvious drainage, no erythematous streaking peripheral to the bandage -Bilateral calves soft and supple; no significant swelling, edema, tenderness, erythema, discoloration, warmth, or palpable cords -2+ DP/PT pulses, intact dermatomes and myotomes distally (5/5 strength). Numbness about the lateral femoral cutaneous nerve distribution. Const Vital Signs, click to edit/add: Vital Signs - 24 hr 04/15/24 10:56 04/15/24 12:31 04/15/24 12:35 Temperature 98.5 F Pulse Rate 66 63 61 Pulse Rate [Right Pulse Oximeter] Respiratory Rate 16 14 14 Blood Pressure 155/83 H 139/69 117/76 Blood Pressure [Right Arm] Pulse Oximetry 96 96 95 Oxygen Delivery Method Room Air Nasal Cannula Nasal Cannula Oxygen Flow Rate 2 2 04/15/24 15:40 04/15/24 15:45 04/15/24 15:50 Temperature 98.3 F Pulse Rate 70 68 67 Pulse Rate [Right Pulse Oximeter] Respiratory Rate 14 14 14 Blood Pressure 114/69 114/64 116/70 Blood Pressure [Right Arm] Pulse Oximetry 95 94 94 Oxygen Delivery Method Room Air Room Air Room Air Oxygen Flow Rate 04/15/24 15:55 04/15/24 16:00 04/15/24 16:05 Temperature Pulse Rate 64 65 63 Pulse Rate [Right Pulse Oximeter] Respiratory Rate 14 14 14 Blood Pressure 120/66 123/66 120/65 Blood Pressure [Right Arm] Pulse Oximetry 97 100 95 Oxygen Delivery Method Room Air Room Air Room Air Oxygen Flow Rate 04/15/24 16:10 04/15/24 16:15 04/15/24 16:30 Temperature 97.6 F 97.3 F L Pulse Rate 67 68 63 Pulse Rate [Right Pulse Oximeter] Respiratory Rate 14 16 16 Blood Pressure 116/70 134/75 130/76 Blood Pressure [Right Arm] Pulse Oximetry 100 97 98 Oxygen Delivery Method Room Air Room Air Room Air Oxygen Flow Rate 04/15/24 16:45 04/15/24 17:00 04/15/24 17:15 Temperature 97.0 F L Pulse Rate 67 61 79 Pulse Rate [Right Pulse Oximeter] Respiratory Rate 16 16 16 Blood Pressure 137/76 123/62 131/75 Blood Pressure [Right Arm] Pulse Oximetry 96 97 100 Oxygen Delivery Method Room Air Room Air Room Air Oxygen Flow Rate 0 04/15/24 17:45 04/15/24 18:15 04/15/24 19:15 Temperature 96.9 F L 98.0 F Pulse Rate 72 73 87 Pulse Rate [Right Pulse Oximeter] Respiratory Rate 16 16 16 Blood Pressure 144/82 H 145/81 H 148/78 H Blood Pressure [Right Arm] Pulse Oximetry 99 99 100 Oxygen Delivery Method Room Air Room Air Room Air Oxygen Flow Rate 04/15/24 20:15 04/15/24 21:15 04/15/24 22:15 Temperature 97.9 F 97.9 F Pulse Rate 87 88 89 Pulse Rate [Right Pulse Oximeter] Respiratory Rate 16 16 16 Blood Pressure 143/78 H 157/82 H 152/86 H Blood Pressure [Right Arm] Pulse Oximetry 96 97 98 Oxygen Delivery Method Room Air Room Air Room Air Oxygen Flow Rate 04/15/24 23:00 04/15/24 23:00 04/16/24 04:17 Temperature 97.6 F Pulse Rate Pulse Rate [Right Pulse Oximeter] 83 Respiratory Rate 16 16 16 Blood Pressure Blood Pressure [Right Arm] 133/75 Pulse Oximetry 99 Oxygen Delivery Method Room Air Room Air Oxygen Flow Rate 04/16/24 07:00 04/16/24 09:45 Temperature 98.5 F Pulse Rate Pulse Rate [Right Pulse Oximeter] 81 Respiratory Rate 16 Blood Pressure Blood Pressure [Right Arm] 130/69 139/71 Pulse Oximetry 98 Oxygen Delivery Method Room Air Oxygen Flow Rate Assessment and Plan Assessment and plan (1) Osteoarthritis of left hip: Problem details: -POD#1 s/p L KAYLIN, Dr. Ariza -perioperative management including pain management and anticoagulation per Orthopedic surgery -encourage postoperative pulmonary hygiene -PT OT consults -plan to discharge home with tomorrow Status: Acute (2) Hypertension: Problem details: -losartan, amlodipine, resume tomorrow Status: Acute (3) Diabetes: Problem details: -most recent A1c 6.9 -usual home dose glargine 60 units q.a.m. and 30 units q.p.m., give 20 units tonight and 40 units in a.m., resuming home dosing upon discharge -glucose checks ACHS, insulin sliding scale, resume aspart at discharge -okay to resume metformin and Januvia at discharge Status: Acute Plan - Complete 23 hour perioperative antibiotics. - PT/OT consult for education and assistance. - Social work consult for discharge planning - Prescribed analgesics as needed - DVT prophylaxis: Rivaroxaban, walking, and SCDs - Advised patient to hold off on ibuprofen until at least his Xarelto regimen is complete. - Anticipation is for discharge to home with today 04/16/2024 if the patient remains medically stable, pain is controlled, and they are safe with mobilization.
--- NOTE | 2024-04-16 11:42 | PC.NURSE ---
Pt discharged @ 1135 via wheelchair. Accompanied by spouse and family member. Pt is AxOx4, pain well managed, no nausea present. Pt signed discharge forms and IV has been removed. Final room check complete.
== END 2024-04-16 11:35 | disposition home or self-care (01) ==
LOC: OR 09:47 → MEDSURG 09:47
PROVIDERS: PCP Family Medicine; Visit Provider Orthopaedic Surgery Sports Medicine
PROC: (CPT 27130; principal; 2024-04-15 11:45)
DX: M16.12 Unilateral primary osteoarthritis, left hip (principal); G89.18 Other acute postprocedural pain; E11.29 Type 2 diabetes mellitus with other diabetic kidney complication; R80.9 Proteinuria, unspecified; Z79.4 Long term (current) use of insulin; I10 Essential (primary) hypertension; I45.10 Unspecified right bundle-branch block; K21.9 Gastro-esophageal reflux disease without esophagitis; I25.10 Atherosclerotic heart disease of native coronary artery without angina pectoris; E78.5 Hyperlipidemia, unspecified
CPT/HCPCS: 27130; 01214; 36415; 51702; 51798; 64450; 73501; 76000; 76942; 82565; 82962; 84132; 84295; 84520; 85025; 86850; 86900; 86901; 97110; 97116; 97161; 97165; 97530; 97535; 99100; A9270; C1776; J0690; J1100; J1815; J2250; J2405; J2704; J2795; J3010; J7030; J7120

== ENCOUNTER 2024-05-12 13:34 | Outpatient (CLI) | payer MEDICARE, SELFPAY | END 2024-05-12 13:35 | disposition home or self-care (01) | LOC: INJ CL 13:35 | PROVIDERS: PCP Family Medicine; Visit Provider Family Medicine | DX: M17.12 Unilateral primary osteoarthritis, left knee (principal); M25.562 Pain in left knee | CPT/HCPCS: 64454 ==

== ENCOUNTER 2024-05-15 09:00 | Outpatient (RCR) | payer MEDICARE, SELFPAY | END 2024-09-12 23:59 | disposition home or self-care (01) | PROVIDERS: PCP Family Medicine; Visit Provider Orthopaedic Surgery Sports Medicine | DX: M16.12 Unilateral primary osteoarthritis, left hip (principal); Z96.642 Presence of left artificial hip joint; Z51.89 Encounter for other specified aftercare | CPT/HCPCS: 97110; 97162; 97164 ==

== ENCOUNTER 2024-05-26 12:03 | Outpatient (CLI) | payer MEDICARE, SELFPAY | END 2024-05-26 12:04 | disposition home or self-care (01) | LOC: INJ CL 12:03 | PROVIDERS: PCP Family Medicine; Visit Provider Family Medicine | DX: M17.12 Unilateral primary osteoarthritis, left knee (principal); M25.562 Pain in left knee; G89.29 Other chronic pain | CPT/HCPCS: 64624; J2250; J3010 ==